=== PATIENT | female | born 1980 | race Caucasian/White ===

== ENCOUNTER 2020-02-26 12:38 | Outpatient (CLI) | payer BC, OTHER ==
[~2020-02-26] VITALS: Ht 175.3 cm; Wt 78.2 kg
[2020-02-26 12:53] VITALS: BP 115/66
[2020-02-26] MEDS ORDERED: LEVO100T5 PO (13:01)
[2020-02-26 13:16] LABS: MICROSCOPIC INDICATED
[2020-02-26] MEDS ORDERED: ONDANSETRON ODT 4 MG ONE (13:18)
[2020-02-26] MEDS ORDERED: ONDANSETRON ODT 4 MG PO ONE (13:30)
== END 2020-02-26 15:08 | disposition home or self-care (01) ==
LOC: LDOP 12:38
PROVIDERS: ATTEND Obstetrics & Gynecology
DX: O09.93 Supervision of high risk pregnancy, unspecified, third trimester (principal); O26.893 Other specified pregnancy related conditions, third trimester; R10.9 Unspecified abdominal pain; Z3A.35 35 weeks gestation of pregnancy
CPT/HCPCS: 59025; 81001; Q0162

== ENCOUNTER 2020-04-03 19:22 | Inpatient (IN) | payer OTHER ==
[~2020-04-03] VITALS: Ht 172.7 cm; Wt 79.5 kg
[~2020-04-03 19:22] MED LIST: LEVO100T5 PO
[2020-04-03] MEDS ORDERED: OXYTOCIN 30U/ 0.9% NaCL 500ML 500 ML IV PRN (21:44)
[2020-04-03] MEDS ORDERED: OXYTOCIN 30U/ 0.9% NaCL 500ML 500 ML IV ONE (21:44)
[2020-04-03 22:00] VITALS: BP 111/68
[2020-04-03] MEDS ORDERED: CALCIUM CARBONATE 500 MG TAB.CHEW PO PRN (22:00)
[2020-04-03] MEDS ORDERED: MISOPROSTOL 25 MCG TABLET VG PRN (22:00)
[2020-04-03] MEDS ORDERED: METOCLOPRAMIDE 5 MG/ML, 2ML IVPush PRN (22:00)
[2020-04-03] MEDS ORDERED: TERBUTALINE 1 MG/ML, 1ML SQ PRN (22:00)
[2020-04-03] MEDS ORDERED: FENTANYL PF 100 MCG/2ML IVPush PRN (22:00)
[2020-04-03] MEDS ORDERED: FENTANYL PF 100 MCG/2ML IV PRN (22:00)
[2020-04-03] MEDS ORDERED: SODIUM CHLORIDE FLUSH 10ML SYR IVF PRN (22:00)
[2020-04-03] MEDS ORDERED: SODIUM CITRATE/CITRIC ACID 30 ML UDC PO PRN (22:00)
[2020-04-03] MEDS ORDERED: ONDANSETRON 2MG/ML, 2ML IVPush PRN (22:00)
[2020-04-03] MEDS ORDERED: TERBUTALINE 1 MG/ML, 1ML IVPush PRN (22:00)
[2020-04-03] MEDS ORDERED: MISOPROSTOL 25 MCG TABLET ONE (22:10)
[2020-04-03 22:19] LABS: BASOPHILS # (AUTO) 0.07 x10^3/uL (0-0.1); BASOPHILS % (AUTO) 1 % (0-1); EOSINOPHILS # (AUTO) 0.08 x10^3/uL (0-0.4); EOSINOPHILS % (AUTO) 1 % (1-7); LYMPHOCYTES # (AUTO) 1.64 x10^3/uL (1-3.4); LYMPHOCYTES % (AUTO) 19 % (22-44); MD NO; MEAN CORPUSCULAR HEMOGLOBIN 30.5 pg (27.0-34.8); MEAN CORPUSCULAR HGB CONC 33.3 g/dL (32.4-35.8); MEAN PLATELET VOLUME 8.1 fL (7.4-10.4); MONOCYTES # (AUTO) 0.67 x10^3/uL (0.2-0.8); MONOCYTES % (AUTO) 8 % (2-9); NEUTROPHILS # (AUTO) 6.37 x10^3/uL (1.8-6.8); NEUTROPHILS % (AUTO) 72 % (42-75); PLATELET COUNT 162 x10^3/uL (130-400); RED BLOOD COUNT 4.22 x10^6/uL (3.82-5.3); RED CELL DISTRIBUTION WIDTH 16.1 % (9.6-15.2)
[2020-04-03] MEDS ORDERED: NEWBORN KIT ONE (22:49)
[2020-04-03] MEDS ORDERED: OXYTOCIN 30U/ 0.9% NaCL 500ML 500 ML ONE (22:50)
[2020-04-04] MEDS ORDERED: FENTANYL PF 100 MCG/2ML ONE (10:36)
[2020-04-04] MEDS ORDERED: LACTATED RINGERS 1,000 ML IV SCH ×2 (11:40→12:22)
[2020-04-04] MEDS ORDERED: D5%-LACTATED RINGERS 1,000 ML IV SCH (11:40)
[2020-04-04] MEDS ORDERED: BUPIVACAINE 0.25% ONE ×2 (11:57→13:11)
[2020-04-04] MEDS ORDERED: FENTANYL/BUPIV./NS/PF 250 ML EPIDCONT ONE (11:58)
[2020-04-04] MEDS ORDERED: FENTANYL/BUPIV./NS/PF 250 ML EPIDCONT SCH (12:22)
[2020-04-04] MEDS ORDERED: LACTATED RINGERS 1,000 ML IVBOLUS PRN (12:30)
[2020-04-04] MEDS ORDERED: EPHEDRINE 50 MG/ML, 1ML IVPush PRN (12:30)
[2020-04-04] MEDS: OXYTOCIN 30U/ 0.9% NaCL 500ML 500 ML IV SCH (17:50)
[2020-04-04] MEDS ORDERED: IBUPROFEN 600 MG TABLET ONE (17:54)
[2020-04-04] MEDS ORDERED: OXYTOCIN 30U/ 0.9% NaCL 500ML 500 ML ONE (17:54)
[2020-04-04] MEDS: IBUPROFEN 600 MG TABLET PO PRN (18:00)
[2020-04-04] MEDS ORDERED: SIMETHICONE 80 MG CHEW TAB PO PRN (18:00)
[2020-04-04] MEDS ORDERED: OXYcodone/APAP 5/325MG TABLET PO PRN (18:00)
[2020-04-04] MEDS ORDERED: ONDANSETRON 2MG/ML, 2ML IV PRN (18:00)
[2020-04-04] MEDS ORDERED: DOCUSATE 100 MG CAPSULE PO PRN (18:00)
[2020-04-04] MEDS ORDERED: CALCIUM CARBONATE 500 MG TAB.CHEW PO PRN (18:00)
[2020-04-04] MEDS ORDERED: MISOPROSTOL 200 MCG TABLET PR PRN (18:00)
[2020-04-04 20:15] VITALS: BP 113/69
[2020-04-04 23:21] VITALS: BP 112/70
[2020-04-05] MEDS: IBUPROFEN 600 MG TABLET PO PRN ×3 (01:47→13:34)
[2020-04-05] MEDS: OXYTOCIN 30U/ 0.9% NaCL 500ML 500 ML IV SCH ×2 (03:50→13:50)
[2020-04-05 03:55] VITALS: BP 106/68
[2020-04-05] MEDS ORDERED: LEVOTHYROXINE 112 MCG TABLET PO SCH (06:00)
[2020-04-05 07:40] VITALS: BP 118/74
[2020-04-05] MEDS ORDERED: IBUP-1222 PO (07:44)
[2020-04-05] MEDS ORDERED: PRENATAL VIT/IRON/FA 1 EACH TABLET PO SCH (09:00)
[2020-04-05 12:11] VITALS: BP 100/69
[2020-04-05] MEDS: OXYcodone/APAP 5/325MG TABLET PO PRN ×2 (13:34→17:16)
== END 2020-04-05 17:50 | disposition home or self-care (01) | DRG 807 ==
LOC: LDIP 21:30 → 2NW 04-04 20:12
PROVIDERS: ADMIT Obstetrics & Gynecology; ATTEND Obstetrics & Gynecology
PROC: 0KQM0ZZ Repair Perineum Muscle, Open Approach (ICD-10-PCS; principal; 2020-04-04)
PROC: 10E0XZZ Delivery of Products of Conception, External Approach (ICD-10-PCS; 2020-04-04)
PROC: 3E0R3BZ Introduction of Anesthetic Agent into Spinal Canal, Percutaneous Approach (ICD-10-PCS; 2020-04-04)
PROC: 00HU33Z Insertion of Infusion Device into Spinal Canal, Percutaneous Approach (ICD-10-PCS; 2020-04-04)
DX: O48.0 Post-term pregnancy (principal); Z37.0 Single live birth; O99.284 Endocrine, nutritional and metabolic diseases complicating childbirth; O34.13 Maternal care for benign tumor of corpus uteri, third trimester; E03.9 Hypothyroidism, unspecified; D25.9 Leiomyoma of uterus, unspecified; O69.81X0 Labor and delivery complicated by cord around neck, without compression, not applicable or unspecified; O70.1 Second degree perineal laceration during delivery; Z91.040 Latex allergy status; Z79.890 Hormone replacement therapy; Z3A.40 40 weeks gestation of pregnancy; Z20.828 Contact with and (suspected) exposure to other viral communicable diseases
CPT/HCPCS: 36415; J7121; 85025; 86592; 86850; 86900; 87340; 87635; G0378; J3010; J3490; J2590; J7120